=== PATIENT | female | born 1960 | race Two or more races ===

== ENCOUNTER 2023-03-03 10:35 | Emergency (ER) | payer MEDICAID ==
[~2023-03-03] VITALS: Ht 154.9 cm; Wt 71.8 kg
[2023-03-03] MEDS ORDERED: GABAPENTIN 300 MG CAP PO ONE (11:15)
[2023-03-03] MEDS ORDERED: GABA-1250 PO (12:31)
[2023-03-03 12:40] VITALS: BP 124/70; PULSE 69; RESP 16; TEMP 96.7; O2SAT 100
== END 2023-03-03 12:46 | disposition home or self-care (01) ==
LOC: ER 10:35
DX: N64.4 Mastodynia (principal); M54.10 Radiculopathy, site unspecified; Z88.8 Allergy status to other drugs, medicaments and biological substances
CPT/HCPCS: 93005

== ENCOUNTER 2023-03-14 18:22 | Emergency (ER) | payer MEDICAID ==
[~2023-03-14] VITALS: Ht 154.9 cm; Wt 71.9 kg
[~2023-03-14 18:22] MED LIST: GABA-1250 PO
[2023-03-14] MEDS ORDERED: DICL1CAP2 PO (22:56)
[2023-03-15 02:00] VITALS: BP 122/74; PULSE 96; RESP 18; TEMP 97.6; O2SAT 94
== END 2023-03-15 02:02 | disposition home or self-care (01) ==
LOC: ER 18:22
DX: N64.4 Mastodynia (principal); E11.9 Type 2 diabetes mellitus without complications; Z90.710 Acquired absence of both cervix and uterus; Z88.6 Allergy status to analgesic agent; Z79.899 Other long term (current) drug therapy

== ENCOUNTER 2023-08-17 11:45 | Inpatient (IN) | payer MEDICAID ==
[~2023-08-17] VITALS: Ht 157.5 cm; Wt 71.8 kg
[~2023-08-17 11:45] MED LIST changes: +DICL1CAP2 PO
[2023-08-17] MEDS: ONDANSETRON ODT 4 MG TAB PO ONE (12:18)
[2023-08-17] MEDS: MAALOX PLUS or MAALOX 30 ML PO ONE (12:18)
[2023-08-17] MEDS: DONNATAL 5ml ORAL Elix (BELLADONNA ALK-PHENOBARB) PO ONE (12:18)
[2023-08-17] MEDS: LIDOCAINE VISCOUS 2% 15ML UD PO ONE (12:18)
[2023-08-17 12:37] LABS: Basophils # (auto) 0.1 10 ^3/uL (0-0.2); Eosinophils # (auto) 0.1 10 ^3/uL (0-0.8); Eosinophils % (auto) 0.9 % (0.0-7.0); Hematocrit 42.3 % (36.0-46.0); Hemoglobin 13.8 g/dL (12.2-16.2); Lymphocytes # (auto) 1.3 10 ^3/uL (0.4-5.4); Lymphocytes % (auto) 18.4 % (10.0-50.0); Mean Corpuscular Hemoglobin 30.1 pg (28.0-32.0); Mean Corpuscular Hgb Conc. 32.5 g/dL (32.0-36.0); Mean Corpuscular Volume 92.6 fL (80.0-100.0); Monocytes # (auto) 0.5 10 ^3/uL (0-1.3); Monocytes % (auto) 6.9 % (0.0-12.0); Neutrophils % (auto) 72.8 % (37.0-80.0); Red Blood Cells 4.57 10^6/uL (4.0-5.20); Red Cell Distribution Width 13.9 % (11.8-14.3); White Blood Cell 6.9 10^3/uL (4.4-10.8)
[2023-08-17 12:55] LABS: Alanine Aminotransferase 15 U/L (7-40); Alkaline Phosphatase 92 U/L (46-116); Anion Gap 8 (5-15); Aspartate Aminotransferase 15 U/L (13-40); BUN/Creatinine Ratio 11.8 (10.0-20.0); Blood Urea Nitrogen 13 mg/dL (9-23); Calcium 8.9 mg/dL (8.7-10.4); Carbon Dioxide 26 mmol/L (20-30); Chloride 103 mmol/L (98-107); Lipase 47 U/L (12-53); Magnesium 2.1 mg/dL (1.6-2.6); Potassium 4.2 mmol/L (3.5-5.1); Sodium 137 mmol/L (136-145)
[2023-08-17 12:56] LABS: Albumin 4.1 g/dL (3.2-4.8); Bilirubin, Total 0.5 mg/dL (0.2-1.0); Total Protein 7.1 g/dL (5.7-8.2)
[2023-08-17 12:57] LABS: Glucose 504 mg/dL (74-106)
[2023-08-17 12:59] LABS: Lactic Acid w/Reflex 2.5 mmol/L (0.4-2.0)
[2023-08-17 13:00] VITALS: PULSE 89; RESP 16; O2SAT 95
[2023-08-17] MEDS: LACTATED RINGER'S 2,000 ML IV ONE (13:03)
[2023-08-17 13:07] LABS: Urine Bacteria FEW /hpf (None Seen); Urine Blood TRACE /uL (Negative); Urine Clarity HAZY (Clear); Urine Color Colorless (Yellow); Urine Protein, UAD Negative (Negative); Urine Specific Gravity 1.035 (1.001-1.035); Urine Urobilinogen Normal (Negative); Urine WBC 16 /hpf (0 - 5); Urine pH 5.5 (5.0-8.0)
[2023-08-17] MEDS: IOHEXOL 300 MG/ML 100ML BOTTLE IJ ONE (13:59)
[2023-08-17] MEDS: LACTATED RINGER'S 1,000 ML IV ONE (15:00)
[2023-08-17] MEDS: InsuLIN REG 1unit/0.01ml Soln (100units/ml) IV ONE (15:03)
[2023-08-17] MEDS: CIPROFLOXACIN 400MG/200ML 200 ML IV ONE (15:17)
[2023-08-17] MEDS ORDERED: DEXTROSE (50%) 50ML SYRG IV PRN (18:15)
[2023-08-17] MEDS ORDERED: DOCUSATE SOD 100 MG CAP PO PRN (18:15)
[2023-08-17] MEDS: metroNIDAZOLE 500 MG TAB PO ONE (18:59)
[2023-08-17] MEDS: SODIUM CHLORIDE 0.9% 1,000 ML IV SCH (18:59)
[2023-08-17] MEDS: cefTRIAXone 1GM/50ML D5W 50 ML IV ONE (18:59)
[2023-08-17 19:07] LABS: Lactic Acid w/Reflex 2.1 mmol/L (0.4-2.0)
[2023-08-17 19:19] LABS: Creatinine, Urine 37.34 mg/dL (30.0-125.0)
[2023-08-17 19:30] VITALS: PULSE 70; RESP 14; O2SAT 98
[2023-08-17] MEDS: ACCU-CHEK COMFORT CURVE STRIP VI SCH (22:25)
[2023-08-17] MEDS: InsuLIN REG 1unit/0.01ml Soln (100units/ml) SC SCH (22:32)
[2023-08-17 22:37] VITALS: BP 118/67; PULSE 66; RESP 20; TEMP 97.8; O2SAT 99
[2023-08-17] MEDS: metroNIDAZOLE 500 MG TAB PO SCH (22:39)
[2023-08-17] MEDS: DICYCLOMINE HCL 10 MG CAP PO SCH (22:39)
[2023-08-18] VITALS (7 sets, daily range): BP systolic 103–114; BP diastolic 45–63; PULSE 64–69; RESP 18–20; TEMP 97.9–98.3; O2SAT 97–99
[2023-08-18 06:30] LABS: Basophils # (auto) 0 10 ^3/uL (0-0.2); Basophils % (auto) 0.9 % (0.0-2.0); Eosinophils # (auto) 0.1 10 ^3/uL (0-0.8); Eosinophils % (auto) 2.3 % (0.0-7.0); Hematocrit 38.4 % (36.0-46.0); Hemoglobin 12.3 g/dL (12.2-16.2); Lymphocytes # (auto) 1.2 10 ^3/uL (0.4-5.4); Lymphocytes % (auto) 23.5 % (10.0-50.0); Mean Corpuscular Hemoglobin 30.6 pg (28.0-32.0); Mean Corpuscular Volume 95.5 fL (80.0-100.0); Monocytes # (auto) 0.5 10 ^3/uL (0-1.3); Monocytes % (auto) 10.1 % (0.0-12.0); Neutrophils # (auto) 3.2 10 ^3/uL (1.6-8.6); Neutrophils % (auto) 63.2 % (37.0-80.0); Nucleated Red Blood Cells % 0.1 %; Red Blood Cells 4.02 10^6/uL (4.0-5.20); Red Cell Distribution Width 14.2 % (11.8-14.3); White Blood Cell 5.1 10^3/uL (4.4-10.8)
[2023-08-18 06:42] LABS: Alanine Aminotransferase 15 U/L (7-40); Albumin 3.3 g/dL (3.2-4.8); Alkaline Phosphatase 75 U/L (46-116); Anion Gap 9 (5-15); BUN/Creatinine Ratio 16.2 (10.0-20.0); Blood Urea Nitrogen 11 mg/dL (9-23); Calcium 8.3 mg/dL (8.7-10.4); Carbon Dioxide 21 mmol/L (20-30); Chloride 110 mmol/L (98-107); Glucose 203 mg/dL (74-106); Potassium 3.7 mmol/L (3.5-5.1); Sodium 140 mmol/L (136-145)
[2023-08-18 06:43] LABS: Aspartate Aminotransferase 13 U/L (13-40); Bilirubin, Total 0.4 mg/dL (0.2-1.0); Total Protein 5.5 g/dL (5.7-8.2)
[2023-08-18] MEDS: cefTRIAXone 1GM/50ML D5W 50 ML IV SCH (10:37)
[2023-08-18] MEDS ORDERED: PREG100C PO (13:35)
[2023-08-18] MEDS: MORPHINE SULFATE INJ 2 MG/ml SYRG IV PRN (14:41)
[2023-08-18] MEDS: ONDANSETRON HCL 4 MG/2 ML VIAL IV PRN (16:28)
[2023-08-19] VITALS (7 sets, daily range): BP systolic 103–119; BP diastolic 50–62; PULSE 64–70; RESP 18–20; TEMP 97.7–98.7; O2SAT 94–99
[2023-08-19] MEDS: INSULIN LANTUS (GLARGINE) 1 /0.01ml (100units/ml) SC SCH ×2 (06:43→14:30)
[2023-08-19] MEDS: LACTULOSE 20Gm/30ML SOLN PO PRN (16:06)
[2023-08-20] VITALS (7 sets, daily range): BP systolic 105–138; BP diastolic 47–88; PULSE 65–72; RESP 17–20; TEMP 97.7–98.6; O2SAT 94–97
[2023-08-20] MEDS: INSULIN LANTUS (GLARGINE) 1 /0.01ml (100units/ml) SC ONE (12:30)
[2023-08-20] MEDS ORDERED: DEXTROSE (50%) 50ML SYRG IV PRN (12:30)
[2023-08-20 13:25] LABS: Basophils # (auto) 0 10 ^3/uL (0-0.2); Basophils % (auto) 0.8 % (0.0-2.0); Eosinophils # (auto) 0.1 10 ^3/uL (0-0.8); Eosinophils % (auto) 1.7 % (0.0-7.0); Hematocrit 38.2 % (36.0-46.0); Hemoglobin 12.3 g/dL (12.2-16.2); Lymphocytes # (auto) 1.3 10 ^3/uL (0.4-5.4); Lymphocytes % (auto) 23.7 % (10.0-50.0); Mean Corpuscular Hemoglobin 29.6 pg (28.0-32.0); Mean Corpuscular Hgb Conc. 32.2 g/dL (32.0-36.0); Mean Corpuscular Volume 91.9 fL (80.0-100.0); Monocytes # (auto) 0.4 10 ^3/uL (0-1.3); Monocytes % (auto) 7.2 % (0.0-12.0); Neutrophils # (auto) 3.6 10 ^3/uL (1.6-8.6); Neutrophils % (auto) 66.6 % (37.0-80.0); Nucleated Red Blood Cells % 0.1 %; Red Blood Cells 4.16 10^6/uL (4.0-5.20); Red Cell Distribution Width 13.8 % (11.8-14.3); White Blood Cell 5.5 10^3/uL (4.4-10.8)
[2023-08-20 13:47] LABS: Alanine Aminotransferase 10 U/L (7-40); Albumin 3.5 g/dL (3.2-4.8); Alkaline Phosphatase 78 U/L (46-116); Anion Gap 5 (5-15); Aspartate Aminotransferase 11 U/L (13-40); BUN/Creatinine Ratio 7.8 (10.0-20.0); Blood Urea Nitrogen 6 mg/dL (9-23); Calcium 9.1 mg/dL (8.7-10.4); Carbon Dioxide 25 mmol/L (20-30); Chloride 108 mmol/L (98-107); Glucose 248 mg/dL (74-106); Magnesium 1.9 mg/dL (1.6-2.6); Potassium 3.7 mmol/L (3.5-5.1); Sodium 138 mmol/L (136-145)
[2023-08-20 13:48] LABS: Bilirubin, Total 0.3 mg/dL (0.2-1.0); Total Protein 6.1 g/dL (5.7-8.2)
[2023-08-20] MEDS: ACCU-CHEK COMFORT CURVE STRIP VI SCH (17:08)
[2023-08-20] MEDS: InsuLIN REG 1unit/0.01ml Soln (100units/ml) SC SCH ×2 (17:10→22:22)
[2023-08-20 23:07] LABS: Free T3 2.2 pg/mL (2.3-4.2)
[2023-08-20 23:08] LABS: Free T4 (Free Thyroxine) 0.69 ng/dL (0.89-1.76)
[2023-08-21 05:12] VITALS: BP 113/65; PULSE 73; RESP 18; TEMP 98.6; O2SAT 97
[2023-08-21 05:32] LABS: Basophils # (auto) 0.1 10 ^3/uL (0-0.2); Basophils % (auto) 1.1 % (0.0-2.0); Eosinophils # (auto) 0.1 10 ^3/uL (0-0.8); Eosinophils % (auto) 2.5 % (0.0-7.0); Hemoglobin 12.4 g/dL (12.2-16.2); Lymphocytes % (auto) 18.9 % (10.0-50.0); Mean Corpuscular Hemoglobin 30.3 pg (28.0-32.0); Mean Corpuscular Hgb Conc. 33.4 g/dL (32.0-36.0); Mean Corpuscular Volume 90.9 fL (80.0-100.0); Monocytes # (auto) 0.6 10 ^3/uL (0-1.3); Monocytes % (auto) 11.1 % (0.0-12.0); Neutrophils # (auto) 3.5 10 ^3/uL (1.6-8.6); Neutrophils % (auto) 66.4 % (37.0-80.0); Nucleated Red Blood Cells % 0.1 %; Red Blood Cells 4.07 10^6/uL (4.0-5.20); Red Cell Distribution Width 14.2 % (11.8-14.3); White Blood Cell 5.3 10^3/uL (4.4-10.8)
[2023-08-21 05:34] LABS: Chloride 108 mmol/L (98-107); Potassium 3.8 mmol/L (3.5-5.1); Sodium 139 mmol/L (136-145)
[2023-08-21 05:35] LABS: Anion Gap 5 (5-15); Carbon Dioxide 26 mmol/L (20-30)
[2023-08-21 05:36] LABS: Calcium 9.3 mg/dL (8.7-10.4)
[2023-08-21 05:40] LABS: Glucose 200 mg/dL (74-106)
[2023-08-21 05:41] LABS: BUN/Creatinine Ratio 14.3 (10.0-20.0); Blood Urea Nitrogen 12 mg/dL (9-23)
[2023-08-21 08:00] VITALS: PULSE 57; RESP 15; O2SAT 95
[2023-08-21] MEDS ORDERED: AZIT500T PO ×2 (08:45→08:48)
[2023-08-21 09:00] VITALS: BP 116/51; PULSE 57; RESP 15; TEMP 98; O2SAT 95
[2023-08-21] MEDS: LEVOTHYROXINE SODIUM 25 MCG TAB PO ONE (09:56)
[2023-08-21] MEDS: AZITHROMYCIN 250 MG TAB PO ONE (09:58)
[2023-08-21] MEDS: INSULIN LANTUS (GLARGINE) 1 /0.01ml (100units/ml) SC SCH (10:03)
[2023-08-21 12:29] VITALS: BP 131/78; PULSE 76; RESP 16; TEMP 98; O2SAT 95
[2023-08-21 13:02] VITALS: TEMP 36.7
[2023-08-21] MEDS ORDERED: LEVO75TA6 PO (13:04)
[2023-08-21] MEDS ORDERED: LEV100T PO (14:07)
[2023-08-22] MEDS ORDERED: LEVOTHYROXINE SODIUM 25 MCG TAB PO SCH (07:00)
[2023-08-29 15:07] LABS: Thyroglobulin Antibody 0.9 IU/mL (0.0-0.9)
== END 2023-08-21 17:00 | disposition home or self-care (01) | DRG 248 ==
LOC: ER 11:45 → OVERFLOW 18:27 → EAST 22:09
PROVIDERS: ADMIT Internal Medicine Geriatric Medicine; ATTEND Internal Medicine Geriatric Medicine
DX: A04.5 Campylobacter enteritis (principal); N17.0 Acute kidney failure with tubular necrosis; E87.21 Acute metabolic acidosis; N30.00 Acute cystitis without hematuria; E11.65 Type 2 diabetes mellitus with hyperglycemia; E03.9 Hypothyroidism, unspecified; E86.0 Dehydration; R10.9 Unspecified abdominal pain; E78.5 Hyperlipidemia, unspecified; Z85.42 Personal history of malignant neoplasm of other parts of uterus; Z90.710 Acquired absence of both cervix and uterus
CPT/HCPCS: 36415; 74177; 76536; 80048; 80053; 81001; 82010; 82270; 82570; 82962; 83036; 83605; 83690; 83735; 84300; 84439; 84443; 84481; 85025; 85048; 86376; 86800; 87045; 87086; 87088; 87186; 87427; 87493; G0378; J1815; J2405; Q0162